=== PATIENT | male | born 1960 ===

== ENCOUNTER 2023-01-04 05:30 | Day surgery (SDC) | payer OTHER | END 2023-01-04 10:20 | disposition home or self-care (01) | LOC: AMB-ENDOS 05:30 | PROVIDERS: ATTEND Colon & Rectal Surgery | DX: D12.3 Benign neoplasm of transverse colon (principal); D12.5 Benign neoplasm of sigmoid colon; K64.8 Other hemorrhoids; Z88.6 Allergy status to analgesic agent ==